=== PATIENT | male | born 1985 ===

== ENCOUNTER 2020-06-30 18:42 | Emergency (ER) | payer SELFPAY ==
[2020-06-30] VITALS (7 sets, daily range): BP systolic 106–151; BP diastolic 63–89; PULSE 109–118; RESP 13–18; TEMP 36.9; O2SAT 96–99; BMI 25.5
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
[2020-06-30] MEDS: fentaNYL 50 mcg/mL INJ 2mL 100 MCG IVP ×2 (19:51→20:06)
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
[2020-06-30] MEDS: iohexol 350 mg/mL 100 mL Btl IV (21:33)
[2020-06-30] MEDS: HYDROmorphone 1 mg/mL INJ 1 mL IVP (21:37)
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
== END 2020-06-30 23:10 | disposition home or self-care (01) ==
PROVIDERS: Emergency Provider Emergency Medicine
DX: S71.141A Puncture wound with foreign body, right thigh, initial encounter (principal); W32.0XXA Accidental handgun discharge, initial encounter; S72.434A Nondisplaced fracture of medial condyle of right femur, initial encounter for closed fracture
CPT/HCPCS: 12001; 12345; 20103; 29530; 73552; 73590; 73706; 96374; 96375; 96376; 99283; 99284; E0114; J1170; J3010; Q9967